=== PATIENT | female | born 1980 | race Caucasian/White ===

== ENCOUNTER 2016-02-27 11:58 | Emergency (ER) | payer OTHER ==
[2016-02-27 13:20] VITALS: BP 177/88; PULSE 99; RESP 16; TEMP 99.6; O2SAT 97
--- NOTE | 2016-02-27 13:46 | UCPHY ---
H & P Time Seen by Provider: 02/27/16 13:26 Patient Type: New HPI/ROS: HPI Nasal congestion. 36-year-old female by private vehicle. She is currently breast-feeding. She reports that she developed sinus pressure with nasal congestion, rhinitis with clear rhinorrhea and sore throat starting on Monday evening. She reports that she was taking some Tylenol and was feeling better on . However, her symptoms came back again on Monday and she describes having worsening nasal congestion. Her sore throat has not been as bad. She took a Tylenol Sinus medication and had some relief on Monday but her nasal congestion returns today. She is asking if there are any alternatives to Tylenol that her safe for . ROS: Constitutional: No fever, no chills. No weakness. Significant for fatigue. Eyes: No discharge. No changes in vision. ENT: As above. Respiratory: No cough. No shortness of breath. Cardiac: No chest pain, no palpitations. Gastrointestinal: No abdominal pain, no vomiting, no diarrhea. Genitourinary: No hematuria. No dysuria or increased frequency with urination. Musculoskeletal: No back pain. No neck pain. She has had some muscle aches and joint aches. Skin: No rashes. Neurological: No headache. No focal weakness or altered sensation. Past medical history: None. Social history: As above. She is here by herself. Physical Exam: General Appearance: Alert, no distress. This patient is responding to questions appropriately and in full sentences. This patient appears well- hydrated and well-nourished. Eyes: Pupils equal and round no pallor or injection. No lid edema, erythema or injection. ENT, Mouth: Nasal congestion and rhinorrhea. Mucous membranes are moist. The pharyngeal tissues are unremarkable. No edema or swelling. No asymmetry suggestive of abscess. No erythema or exudates. Respiratory: There are no retractions, lungs are clear to auscultation with good air movement bilaterally. Intermittent dry cough. Cardiovascular: Regular rate and rhythm. No murmur. Neurological: Motor sensory function is grossly intact. Cranial nerves are normal. Gait is normal. Skin: Warm and dry, no rashes. Musculoskeletal: Neck is supple and nontender. Some anterior cervical lymphadenopathy. Extremities are symmetrical. All joints range without pain or impingement. Psychiatric: No agitation. No depression. Database: Influenza: Negative. EKG: Imaging: Procedures: Emergency department course: Vital signs reviewed. After my evaluation, I discussed supportive care with the patient. She did ask about antibiotics. I do not feel that antibiotics are indicated at this time. She presents as a viral syndrome. I recommended Tylenol for fever, rest and good oral fluid hydration. She has been instructed to follow up with her primary care physician in 1-2 days for re-evaluation. Return to Urgent Care precautions have been discussed with her. All of her questions were answered. She was discharged in good condition. Differential Diagnosis: The differential diagnosis on this patient includes but is not limited to influenza, viral upper respiratory infection. Serious bacterial infection unlikely. This represents a partial list of diagnoses considered. These considerations are based on history, physical exam, past history, reassessment and diagnostic testing. Smoking Status: Never smoked Constitutional: Initial Vital Signs Temperature (C) 37.6 C 02/27/16 13:15 Heart Rate 99 02/27/16 13:15 Respiratory Rate 16 02/27/16 13:15 Blood Pressure 177/88 H 02/27/16 13:15 O2 Sat (%) 97 02/27/16 13:15 Allergies/Adverse Reactions: No Known Allergies Allergy (Verified 05/03/13 08:16) Home Medications: Medication Instructions Recorded Bcp 1 tab PO .DAILY HOLD 05/03/13 Cefuroxime Axetil [Ceftin (RX)] 250 mg PO BID 05/03/13 Cholecalciferol (Vitamin D3) 2,000 unit PO DAILY 05/03/13 [Vitamin D-3] Docosahexanoic Acid [ Dha] 200 mg PO DAILY 05/03/13 Hydrocodone/APAP 5/325 [Teton 1 - 2 tab PO Q4 PRN 05/03/13 5/325 (RX)] MDM/Departure - Depart Disposition: Home, Routine, Self-Care Clinical Impression: Viral syndrome, Upper respiratory infection Condition: Good Instructions: Viral Syndrome (ED), Influenza (ED) Additional Instructions: Read and follow provided instructions. Get plenty of rest. Drink lots of fluids and keep herself well hydrated. Ibuprofen dosin mg every 6 hours with meals for the next 3 days only. Tylenol dosing, 650 mg to 1 g every 6-8 hours for or fever control over the next 3 days. Flonase can be purchased [id number] for nasal congestion. This is a nasal spray. Discuss with your pharmacist regarding concerns about . Follow-up with your primary care physician in 1-2 days for re-evaluation. Return to the emergency department for worsening symptoms or other serious concerns. Referrals: Manpreet Garcia MD [Primary Care Provider] - As per Instructions - PQRS PQRS Measurement: Not applicable.
== END 2016-02-27 14:35 | disposition home or self-care (01) ==
LOC: CED 11:58
DX: B34.9 Viral infection, unspecified (principal)
CPT/HCPCS: 87400-PO; 99203-PO; G0463-PO